=== PATIENT | female | born 1990 | race Caucasian/White ===

== ENCOUNTER 2017-06-23 21:59 | Emergency (ER) | payer BC ==
[2017-06-24] MEDS ORDERED: Lidocaine 1% MPF wEPI 200,000* 30 ML SDV INJ ONE (00:16)
[2017-06-24] MEDS ORDERED: Lidocaine 2% EPI 1:200000 MPF* 20 ML VIAL ONE (00:21)
--- NOTE | 2017-06-24 00:21 | ED ---
Laceration/Wound HPI - HPI Summary HPI Summary: 26-year-old female presents with head injury today. She states she was playing soccer and they bumped heads with someone. She denies any loss consciousness. She denies any nausea vomiting. She denies any change in vision. She denies any dizziness. She denies any neck pain. She has a laceration is currently using. Her tetanus is up-to-date. She has a laceration left side of her forehead that is currently oozing. She is a mild headache. She has not taking anything for her symptoms. - History of Current Complaint Stated Complaint: HEAD LAC Time Seen by Provider: 06/24/17 00:10 Pain Intensity: 2 - Allergy/Home Medications Allergies/Adverse Reactions: Allergies Allergy/AdvReac Type Severity Reaction Status Date / Time No Known Allergies Allergy Verified 06/23/17 22:05 PMH/Surg Hx/FS Hx/Imm Hx Endocrine/Hematology History: Denies: Hx Anticoagulant Therapy Cardiovascular History: Denies: Hx Hypertension Infectious Disease History: No Infectious Disease History: Denies: Traveled Outside the [place] in Last 30 Days - Family History Known Family History: Negative: Diabetes Review of Systems Negative: Fever Negative: Chest Pain Negative: Shortness Of Breath Positive: Other - facial laceration Positive: Headache All Other Systems Reviewed And Are Negative: Yes Physical Exam Triage Information Reviewed: Yes Vital Signs On Initial Exam: Initial Vitals Temp Pulse Resp BP Pulse Ox 98.5 F 75 16 141/90 85 06/23/17 22:04 06/23/17 22:04 06/23/17 22:04 06/23/17 22:04 06/23/17 22:04 Vital Signs Reviewed: Yes Appearance: Positive: Well-Appearing Skin: Positive: Warm, Dry, Other - 3cm by 1/2cm laceration to left forehead Head/Face: Positive: Normal Head/Face Inspection, Other - no step off, racoon eyes, alejandre sign Eyes: Positive: Normal, EOMI, SEAN, Conjunctiva Clear ENT: Positive: Normal ENT inspection, Pharynx normal, TMs normal Respiratory/Lung Sounds: Positive: Clear to Auscultation, Breath Sounds Present Cardiovascular: Positive: Normal, RRR Abdomen Description: Positive: Nontender, Soft Bowel Sounds: Positive: Present Musculoskeletal: Positive: Normal Neurological: Positive: Sensory/Motor Intact, Alert, Oriented to Person Place, Time, CN Intact II-III Psychiatric: Positive: Normal Procedures - Laceration/Wound Repair 1 Location: face Description: Linear Anesthesia: Local, 1.0%, Epi Length, Depth and Shape: 3cm by 1/2cm Irrigated w/ Saline (ccs): 200 Closure: Single Layer Suture Type: Prolene - 6-0 Number of Sutures: 7 Layer Closure?: No Sterile Dressing Applied?: No Diagnostics - Vital Signs Vital Signs Temp Pulse Resp BP Pulse Ox 06/23/17 22:04 98.5 F 75 16 141/90 85 - Laboratory Lab Statement: Any lab studies that have been ordered have been reviewed, and results considered in the medical decision making process. Laceration Repair Course/Dx - Course Course Of Treatment: 26-year-old female presents with head injury today. She states she was playing soccer and they bumped heads with someone. She denies any loss consciousness. She denies any nausea vomiting. She denies any change in vision. She denies any dizziness. She denies any neck pain. She has a laceration is currently using. Her tetanus is up-to-date. She has a laceration left side of her forehead that is currently oozing. She is a mild headache. She has not taking anything for her symptoms. On exam has 3 cm by half centimeter laceration of left side of forehead. Normal neuro exam. According [place] rules no head imaging needed. Cleaned laceration and placed 7 sutures. explained likely with scar. patient understand and agrees with plan. - Differential Dx Differental Diagnoses: Abrasion, Avulsion, Laceration - Clinical Impression Provider Diagnoses: Facial laceration, Head injury Discharge - Sign-Out/Discharge Documenting (check all that apply): Discharge - Discharge Plan Condition: Good Disposition: HOME Patient Education Materials: Care For Your Stitches (ED) Referrals: [facility] - [facility] [Primary Care Provider] - Additional Instructions: Keep area clean and dry for 24 hours Take Tylenol or ibuprofen for pain every 6 hours Return to ED or primary for suture removal in 5 days Return to ED if develop signs of infection such as fever, spreading redness, or pus formation - Billing Disposition and Condition Condition: GOOD Disposition: HOME
[2017-06-24 00:59] VITALS: BP 124/79
== END 2017-06-24 00:56 | disposition home or self-care (01) ==
LOC: ED 21:59
DX: S09.90XA Unspecified injury of head, initial encounter (principal); S01.81XA Laceration without foreign body of other part of head, initial encounter; R51 Headache; W50.0XXA Accidental hit or strike by another person, initial encounter; Y93.66 Activity, soccer; Y92.9 Unspecified place or not applicable
CPT/HCPCS: 12001; 96374; 99282; J2001